=== PATIENT | female | born 1995 | race Caucasian/White ===

== ENCOUNTER → 2021-02-25 10:07 | Outpatient (CLI) | payer OTHER, SELFPAY ==
[2021-02-25 19:32] LABS: COVID19 - ORCAS (NP or Nasal) Negative (Negative)
== END ==
PROVIDERS: Referring Provider Family Medicine; Visit Provider Family Medicine
DX: Z20.822 Contact with and (suspected) exposure to COVID-19 (principal)
CPT/HCPCS: U0003

== ENCOUNTER → 2021-08-03 08:31 | Outpatient (CLI) | payer OTHER, SELFPAY ==
[2021-08-03 20:00] LABS: COVID19 - ORCAS (NP or Nasal) Negative (Negative)
== END ==
PROVIDERS: Visit Provider Physician Assistant
DX: Z20.822 Contact with and (suspected) exposure to COVID-19 (principal)
CPT/HCPCS: U0003